=== PATIENT | male | born 1975 | race Caucasian/White ===

== ENCOUNTER 2017-05-15 14:20 | Emergency (ER) | payer OTHER ==
[2017-05-15 14:31] VITALS: O2SAT 98
--- NOTE | 2017-05-15 14:55 | ED PDOC ---
HPI: Abdomen Time Seen by Provider: 05/15/17 14:33 Chief Complaint (Nursing): Abdominal Pain Chief Complaint (Provider): abd pain History Per: Patient History/Exam Limitations: no limitations Onset/Duration Of Symptoms: Hrs (1 hour prior to arrival), Sudden Onset, Persistent Current Symptoms Are (Timing): Still Present Severity: Moderate Location Of Pain/Discomfort: Epigastric (radiating to LEFT chest) Associated Symptoms: Chest Pain, Other (shortness of breath. Last week had 3 days of vomiting/diarrhea which resolved spontaneously). denies: Fever, Chills , Nausea, Vomiting, Diarrhea, Loss Of Appetite, Back Pain, Constipation, Urinary Symptoms Exacerbating Factors: None Alleviating Factors: None Additional Complaint(s): Similar to a pain he had been evaluated for before and was given antiacid. PMD [facility] Past Medical History Reviewed: Historical Data, Nursing Documentation, Vital Signs Vital Signs: Last Vital Signs Temp 98.3 F 05/15/17 14:28 Pulse 84 05/15/17 14:28 Resp 22 05/15/17 14:28 BP 146/81 05/15/17 14:28 Pulse Ox 98 05/15/17 16:34 - Medical History PMH: Hypercholesterolemia (mild, diet controlled) - Surgical History Surgical History: No Surg Hx - Family History Family History: States: CAD, Other Other Family History: Thyroid disease - Social History Current smoker - smoking cessation education provided: No Alcohol: None Drugs: Denies - Home Medications Home Medications: Ambulatory Orders Medication Instructions Recorded Famotidine [Pepcid] 20 mg PO BID #20 tab 03/29/15 Dicyclomine [Bentyl] 20 mg PO BID PRN #30 tab 05/15/17 Omeprazole Magnesium [Prilosec Otc] 20 mg PO DAILY #30 tcp 05/15/17 - Allergies Allergies/Adverse Reactions: Allergies Allergy/AdvReac Type Severity Reaction Status Date / Time No Known Allergies Allergy Verified 03/29/15 00:37 Review of Systems ROS Statement: Except As Marked, All Systems Reviewed And Found Negative (and as per HPI) Cardiovascular: Positive for: Chest Pain. Negative for: Palpitations, Light Headedness Respiratory: Positive for: Shortness of Breath. Negative for: Cough Gastrointestinal: Positive for: Abdominal Pain. Negative for: Nausea, Vomiting , Diarrhea, Constipation Physical Exam - Reviewed Nursing Documentation Reviewed: Yes Vital Signs Reviewed: Yes - Physical Exam Appears: Positive for: Non-toxic, In Acute Distress Head Exam: Positive for: ATRAUMATIC, NORMOCEPHALIC Skin: Positive for: Warm, Dry Eye Exam: Positive for: EOMI, PERRL ENT: Negative for: Pharyngeal Erythema, Tonsillar Exudate Neck: Positive for: Painless ROM, Supple Cardiovascular/Chest: Positive for: Regular Rate, Rhythm, Chest Non Tender. Negative for: Murmur Respiratory: Positive for: Normal Breath Sounds. Negative for: Rales, Respiratory Distress Gastrointestinal/Abdominal: Positive for: Soft, Tenderness (epigastric and RUQ) . Negative for: Mass, Distended, Guarding, Rebound Back: Positive for: Normal Inspection. Negative for: Decreased ROM Extremity: Positive for: Normal ROM. Negative for: Deformity Lymphatic: Negative for: Adenopathy Neurologic/Psych: Positive for: Alert. Negative for: Motor/Sensory Deficits - Laboratory Results Result Diagrams: 05/15/17 14:55 05/15/17 14:55 Urine dip results: Positive for: Glucose. Negative for: Leukocyte Esterase, Blood, Nitrate, Ketones, Bilirubin, Protein - ECG ECG: Positive for: Interpreted By De ECG Rhythm: Positive for: Normal QRS, Normal ST Segment, Sinus Rhythm O2 Sat by Pulse Oximetry: 98 Pulse Ox Interpretation: Normal - Progress ED Course And Treament: Pt found to have glucose in UA and elevated serum glucose. Otherwise no clinically significant lab abnormalities. Accession No. : [id number] Patient Name / ID : MOISE WANG / [id number] Exam Date : 05/15/2017 15:37:52 ( Approved ) Study Comment : Sex / Age : M / 41Y Creator : Damion West MD Dictator : Damion West MD Bellhop : Statistics Tutor : Damion West MD Approver2 : Report Date : 05/15/2017 16:09:44 My Comment : HISTORY: upper abdominal pain COMPARISON: None. TECHNIQUE: Sonographic evaluation of the abdomen. FINDINGS: LIVER: Measures 13.6 cm. Diffusely increased echogenicity of the liver parenchyma. Consistent with fatty infiltration. Smooth contour. No mass. No biliary ductal dilatation. GALLBLADDER: Unremarkable. No gallstones. COMMON BILE DUCT: Measures 4 mm. No stones. No dilatation. PANCREAS: Unremarkable as visualized. No mass. No ductal dilatation. RIGHT KIDNEY: Measures 12.6cm. Normal echogenicity. No calculus, mass, or hydronephrosis. LEFT KIDNEY: Measures 11.5cm. Normal echogenicity. No calculus, mass, or hydronephrosis. SPLEEN: Normal in size and contour. No mass. AORTA: No aneurysmal dilatation. IVC: Unremarkable. OTHER FINDINGS: None. IMPRESSION: Fatty infiltration of the liver. No evidence of cholelithiasis or cholecystitis. Re-evaluation Time: 16:30 Condition: Improved Disposition - Clinical Impression Clinical Impression: Abdominal pain, Hyperglycemia, Fatty liver Counseled Patient/Family Regarding: Studies Performed, Diagnosis, Need For Followup, Rx Given - Disposition Referrals: [facility] [Provider Group] - 05/16/17 (CALL [facility] TOMORROW TO SETUP FOLLOW UP APPOINTMENT IN 2-3 DAYS [facility]OL[facility] YEIMI EN 2-3 ADAM A CHEQAR DE NUO) Disposition: Routine/Home Disposition Time: 16:31 Condition: STABLE Prescriptions: Dicyclomine [Bentyl] 20 mg PO BID PRN #30 tab PRN Reason: abdominal pain Omeprazole Magnesium [Prilosec Otc] 20 mg PO DAILY #30 tcp Instructions: Non-Alcoholic Fatty Liver Disease (ED), Hyperglycemia, Non- Diabetic (ED), Epigastric Pain (ED) Forms: [facility] ED School/Work Excuse Print Language: SRI LANKAN
[2017-05-15 15:08] LABS: BASO # 0.1 K/uL (0.0-0.2); EOS # 0.2 K/uL (0.0-0.7); EOS % 2.4 % (0.0-4.0); HEMATOCRIT 41.1 % (35.0-51.0); LYMPH # 2.1 K/uL (1.0-4.3); LYMPH % 31.9 % (20.0-40.0); MEAN CELL VOLUME 86.5 fl (80.0-94.0); MEAN CORPUSCULAR HEMOGLOBIN 30.2 pg (27.0-31.0); MEAN CORPUSCULAR HGB CONC 34.9 g/dL (33.0-37.0); MEAN PLATELET VOLUME 8.5 fl (7.2-11.7); MONO # 0.6 K/uL (0.0-0.8); MONO % 8.6 % (0.0-10.0); NEUT # 3.7 K/uL (1.8-7.0); NEUT % 56.1 % (50.0-75.0); NRBC % 0.2 % (0.0-0.0); RED CELL DISTRIBUTION WIDTH 12.9 % (11.5-14.5); WHITE BLOOD COUNT 6.6 K/uL (4.8-10.8)
[2017-05-15 15:27] LABS: PARTIAL THROMBOPLASTIN TIME 30.9 Seconds (25.6-37.1)
[2017-05-15 15:35] LABS: ALB/GLOB RATIO 1.5 (1.0-2.1); ALKALINE PHOSPHATASE 105 U/L (38-126); ALT/SGPT 114 U/L (21-72); AST/SGOT 50 U/L (17-59); BILIRUBIN,TOTAL 0.6 mg/dl (0.2-1.3); BLOOD UREA NITROGEN 14 mg/dl (9-20); CALCIUM 9.2 mg/dL (8.4-10.2); CARBON DIOXIDE 24 mmol/L (22-30); CHLORIDE 103 mmol/L (98-107); GFR AFRICAN-AMERICAN > 60; GLUCOSE,RANDOM 208 mg/dL (75-110); LIPASE 151 U/L (23-300); POTASSIUM 3.9 MMOL/L (3.6-5.0); SODIUM 139 mmol/l (132-148); TOTAL PROTEIN 7.1 G/DL (6.3-8.2)
--- NOTE | 2017-05-15 16:11 | US ---
HISTORY: upper abdominal pain COMPARISON: None. TECHNIQUE: Sonographic evaluation of the abdomen. FINDINGS: LIVER: Measures 13.6 cm. Diffusely increased echogenicity of the liver parenchyma. Consistent with fatty infiltration. Smooth contour. No mass. No biliary ductal dilatation. GALLBLADDER: Unremarkable. No gallstones. COMMON BILE DUCT: Measures 4 mm. No stones. No dilatation. PANCREAS: Unremarkable as visualized. No mass. No ductal dilatation. RIGHT KIDNEY: Measures 12.6cm. Normal echogenicity. No calculus, mass, or hydronephrosis. LEFT KIDNEY: Measures 11.5cm. Normal echogenicity. No calculus, mass, or hydronephrosis. SPLEEN: Normal in size and contour. No mass. AORTA: No aneurysmal dilatation. IVC: Unremarkable. OTHER FINDINGS: None. IMPRESSION: Fatty infiltration of the liver. No evidence of cholelithiasis or cholecystitis.
[2017-05-15] MEDS ORDERED: Alum-Mag Hydrox-Simethicone Susp (30 mL) PO STA (16:29)
[2017-05-15] MEDS ORDERED: Sodium Chloride 0.9% 500 ML IV STA (16:31)
[2017-05-15] MEDS ORDERED: Alum-Mag Hydrox-Simethicone Susp (30 mL) ONE (16:50)
[2017-05-15 19:02] VITALS: BP 115/63; PULSE 67; RESP 18; TEMP 98
== END 2017-05-15 19:03 | disposition home or self-care (01) ==
LOC: H.ER 14:20
DX: R10.13 Epigastric pain (principal); K76.0 Fatty (change of) liver, not elsewhere classified; R73.9 Hyperglycemia, unspecified; E78.00 Pure hypercholesterolemia, unspecified; R11.10 Vomiting, unspecified